=== PATIENT | male | born 1960 | race Caucasian/White ===

== ENCOUNTER 2017-10-22 05:28 | Inpatient (IN) | payer BC ==
[~2017-10-22] VITALS: Ht 188 cm; Wt 102.1 kg
[~2017-10-22 05:28] MED LIST: ATEN50TA PO; INSU100V9 SUBCUT; LIP10 PO; LOSA50TA3 PO
[2017-10-22] MEDS ORDERED: CELECOXIB 200 MG CAPSULE ONE (05:58)
[2017-10-22] MEDS ORDERED: CEFAZOLIN 2 GM IVPB PREMIX 50 ML IV ONE (05:58)
[2017-10-22] MEDS ORDERED: ACETAMINOPHEN 500 MG TABLET ONE (05:59)
[2017-10-22] MEDS ORDERED: oxyCODONE HCL 10 MG TAB.ER.12H PO ONE (05:59)
[2017-10-22] MEDS ORDERED: GABAPENTIN 300 MG CAPSULE ONE (05:59)
[2017-10-22] MEDS ORDERED: TRANEXAMIC ACID 650 MG TABLET ONE (06:00)
[2017-10-22] MEDS ORDERED: NF (06:20)
[2017-10-22] MEDS ORDERED: POLYMYXIN 500,000/BACIT.10,000 UNITS in NS IRR 1 L IR ONE (07:10)
[2017-10-22] MEDS ORDERED: LR 1,000 ML IV ONE (08:16)
[2017-10-22] MEDS ORDERED: ONDANSETRON HCL 4 MG/2 ML VIAL IVP PRN ×3 (08:30→09:45)
[2017-10-22] MEDS ORDERED: ePHEDrine sulfate 50 MG/ML VIAL IVP PRN (08:30)
[2017-10-22] MEDS ORDERED: KETOROLAC TROMETHAMINE 30 MG VIAL IM PRN (08:30)
[2017-10-22] MEDS ORDERED: fentaNYL CITRATE/PF 100 MCG/2 ML AMP IVP PRN (08:30)
[2017-10-22] MEDS ORDERED: DIPHENHYDRAMINE INJ 50 MG/ML VIAL IVP PRN (08:30)
[2017-10-22] MEDS ORDERED: NALBUPHINE HCL 10 MG/ML AMP IVP PRN (08:30)
[2017-10-22] MEDS ORDERED: NALOXONE HCL 0.4 MG/ML AMP (NARCAN) IVP PRN (08:30)
[2017-10-22] MEDS: LR 1,000 ML IV SCH ×2 (09:32→20:15)
[2017-10-22] MEDS ORDERED: ROPIVACAINE 0.2% 550 ML INJ SCH (09:32)
[2017-10-22] MEDS ORDERED: ACETAMINOPHEN 325 MG TABLET PO PRN (09:45)
[2017-10-22] MEDS ORDERED: KETOROLAC TROMETHAMINE 30 MG VIAL IVP PRN (09:45)
[2017-10-22] MEDS ORDERED: MORPHINE SULFATE 10 MG/ML VIAL IVP PRN (09:45)
[2017-10-22] MEDS ORDERED: PROMETHAZINE HCL 25 MG/ML AMP IVP PRN (09:45)
[2017-10-22] MEDS ORDERED: oxyCODONE HCL 5 MG TABLET PO PRN (09:45)
[2017-10-22] MEDS ORDERED: DIPHENHYDRAMINE HCL 50 MG CAPSULE PO PRN (09:45)
[2017-10-22] MEDS ORDERED: SENNOSIDES 8.6 MG TABLET PO PRN (09:45)
[2017-10-22] MEDS ORDERED: VANCOMYCIN HCL 1000 MG/VIAL IV ONE (09:50)
[2017-10-22] MEDS ORDERED: LR 1,000 ML IV.SOLN IV ONE (09:50)
[2017-10-22] MEDS ORDERED: EPINEPHrine 1 MG/ML AMP IV ONE (09:50)
[2017-10-22] MEDS ORDERED: METOCLOPRAMIDE HCL 10 MG/2 ML VIAL IVP ONE (09:50)
[2017-10-22] MEDS ORDERED: MORPHINE SULFATE 10MG/10ML PF AMP EP ONE (09:50)
[2017-10-22] MEDS ORDERED: SEVOFLURANE 15 MIN GAS INH ONE (09:50)
[2017-10-22] MEDS ORDERED: fentaNYL CITRATE/PF 100 MCG/2 ML AMP IVP ONE (09:50)
[2017-10-22] MEDS ORDERED: MIDAZOLAM HCL 5 MG/ML VIAL (VERSED) IV ONE (09:50)
[2017-10-22] MEDS ORDERED: KETOROLAC TROMETHAMINE 30 MG VIAL IVP ONE (09:50)
[2017-10-22] MEDS ORDERED: DEXAMETHASONE SOD PHOSPHATE 4 MG/ML VIAL IVP ONE (09:50)
[2017-10-22] MEDS ORDERED: PROPOFOL 200MG/ 20ML VIAL (DIPRIVAN) IV ONE (09:50)
[2017-10-22] MEDS ORDERED: ROPIVACAINE 40 MG/20 ML AMP EP ONE (09:50)
[2017-10-22] MEDS ORDERED: TRANEXAMIC ACID 1,000 MG/10 ML VIAL IV ONE (09:50)
[2017-10-22] MEDS ORDERED: NS 50 ML BAG IV ONE (09:50)
[2017-10-22 10:30] VITALS: BP_SYST 134
[2017-10-22] MEDS: CEFAZOLIN 1 GM IVPB PREMIX 50 ML IV SCH ×2 (14:37→22:11)
[2017-10-22] MEDS: ACETAMINOPHEN 500 MG TABLET PO SCH ×2 (14:47→20:14)
[2017-10-22 14:49] VITALS: BP_SYST 134
[2017-10-22 15:35] VITALS: BP_SYST 126
[2017-10-22 19:30] VITALS: BP_SYST 118
[2017-10-22] MEDS: CELECOXIB 200 MG CAPSULE PO SCH (20:11)
[2017-10-22] MEDS: GABAPENTIN 300 MG CAPSULE PO SCH (20:11)
[2017-10-22] MEDS: ATENOLOL 50 MG TABLET (TENORMIN) PO SCH (20:12)
[2017-10-22] MEDS: INSULIN REGULAR, HUMAN 100 UNITS/ML, 10 ML VIAL (novoLIN R) SUBCUT PRN (23:14)
[2017-10-22 23:50] VITALS: BP_SYST 114
[2017-10-23] MEDS: CEFAZOLIN 1 GM IVPB PREMIX 50 ML IV SCH (05:52)
[2017-10-23] MEDS: LR 1,000 ML IV SCH ×2 (05:53→16:57)
[2017-10-23] MEDS: INSULIN REGULAR, HUMAN 100 UNITS/ML, 10 ML VIAL (novoLIN R) SUBCUT PRN ×2 (06:00→11:33)
[2017-10-23 06:02] LABS: BASOPHILS % (AUTO) 0.2 % (0.0-2.0); EOSINOPHILS # (AUTO) 0.1 K/uL (0.0-0.4); EOSINOPHILS % (AUTO) 0.5 % (0.0-4.0); HEMATOCRIT 36.3 % (36-54); HEMOGLOBIN 12.2 g/dL (14.0-18.0); LYMPHOCYTES # (AUTO) 1.6 K/uL (1.0-5.5); LYMPHOCYTES % (AUTO) 12.5 % (20.5-51.5); MEAN CORPUSCULAR HEMOGLOBIN 28 pg (27-31); MEAN CORPUSCULAR HGB CONC 34 % (32-36); MEAN CORPUSCULAR VOLUME 83 fL (79.0-98.0); MONOCYTES # (AUTO) 0.7 K/uL (0.0-1.0); MONOCYTES % (AUTO) 5.3 % (1.7-9.3); NEUTROPHILS # (AUTO) 10.2 K/uL (1.8-7.7); NEUTROPHILS % (AUTO) 81.5 % (40.0-70.0); PLATELET COUNT (AUTO) 194 K/uL (130-430); RED BLOOD CELL COUNT(AUTO) 4.35 MIL/uL (4.2-6.2); RED CELL DISTRIBUTION WIDTH 13.2 % (9.0-15.0); WHITE BLOOD COUNT (AUTO) 12.6 K/uL (4.8-10.8)
[2017-10-23 06:11] LABS: CALCIUM 8.8 mg/dL (8.4-11.0); POTASSIUM 4.9 mmol/L (3.5-5.1)
[2017-10-23 07:55] VITALS: BP_SYST 145
[2017-10-23] MEDS: ACETAMINOPHEN 500 MG TABLET PO SCH ×3 (08:41→20:09)
[2017-10-23] MEDS: CELECOXIB 200 MG CAPSULE PO SCH ×2 (08:42→20:09)
[2017-10-23] MEDS: ATORVASTATIN 10 MG TABLET PO SCH (08:43)
[2017-10-23] MEDS: LOSARTAN POTASSIUM 50 MG TABLET (COZAAR) PO SCH (08:43)
[2017-10-23] MEDS: ATENOLOL 50 MG TABLET (TENORMIN) PO SCH ×2 (08:43→20:08)
[2017-10-23] MEDS: RIVAROXABAN 10 MG TABLET PO SCH (10:24)
[2017-10-23] MEDS: oxyCODONE HCL 5 MG TABLET PO PRN ×2 (10:28→21:30)
[2017-10-23 12:42] VITALS: BP_SYST 135
[2017-10-23 16:47] VITALS: BP_SYST 121
[2017-10-23 19:40] VITALS: BP_SYST 140
[2017-10-23] MEDS: GABAPENTIN 300 MG CAPSULE PO SCH (20:08)
[2017-10-23 23:59] VITALS: BP_SYST 102
[2017-10-24] MEDS: LR 1,000 ML IV SCH (01:32)
[2017-10-24 05:20] LABS: BASOPHILS % (AUTO) 0.2 % (0.0-2.0); EOSINOPHILS # (AUTO) 0.3 K/uL (0.0-0.4); EOSINOPHILS % (AUTO) 2.7 % (0.0-4.0); HEMATOCRIT 33.2 % (36-54); HEMOGLOBIN 11.3 g/dL (14.0-18.0); LYMPHOCYTES # (AUTO) 1.4 K/uL (1.0-5.5); LYMPHOCYTES % (AUTO) 14.9 % (20.5-51.5); MEAN CORPUSCULAR HEMOGLOBIN 28 pg (27-31); MEAN CORPUSCULAR HGB CONC 34 % (32-36); MEAN CORPUSCULAR VOLUME 83 fL (79.0-98.0); MONOCYTES # (AUTO) 0.6 K/uL (0.0-1.0); MONOCYTES % (AUTO) 6.7 % (1.7-9.3); NEUTROPHILS # (AUTO) 7.4 K/uL (1.8-7.7); NEUTROPHILS % (AUTO) 75.5 % (40.0-70.0); PLATELET COUNT (AUTO) 166 K/uL (130-430); RED BLOOD CELL COUNT(AUTO) 4.01 MIL/uL (4.2-6.2); RED CELL DISTRIBUTION WIDTH 13.4 % (9.0-15.0); WHITE BLOOD COUNT (AUTO) 9.7 K/uL (4.8-10.8)
[2017-10-24 05:24] LABS: CALCIUM 8.7 mg/dL (8.4-11.0); CHLORIDE 105 mmol/L (98-107); CREATININE 1.07 mg/dL (0.55-1.30); GLUCOSE 138 mg/dL (70-99); SODIUM SERUM 136 mmol/L (136-145); UREA NITROGEN, BLOOD 19 mg/dL (8-21)
[2017-10-24] MEDS: oxyCODONE HCL 5 MG TABLET PO PRN (05:33)
[2017-10-24 06:30] LABS: GFR AFRICAN AMERICAN 92 mL/min (>90)
[2017-10-24 06:31] LABS: ANION GAP < 3 (5-15)
[2017-10-24 07:45] VITALS: BP_SYST 131
[2017-10-24] MEDS: CELECOXIB 200 MG CAPSULE PO SCH (08:42)
[2017-10-24] MEDS: LOSARTAN POTASSIUM 50 MG TABLET (COZAAR) PO SCH (08:42)
[2017-10-24] MEDS: ATORVASTATIN 10 MG TABLET PO SCH (08:42)
[2017-10-24] MEDS: ATENOLOL 50 MG TABLET (TENORMIN) PO SCH (08:43)
[2017-10-24] MEDS: ACETAMINOPHEN 500 MG TABLET PO SCH (08:54)
[2017-10-24] MEDS: RIVAROXABAN 10 MG TABLET PO SCH (09:05)
[2017-10-24] MEDS ORDERED: PERC10 GT (11:44)
[2017-10-24] MEDS ORDERED: RIVA10TA PO (11:48)
[2017-10-24 11:49] VITALS: BP_SYST 118
[2017-10-24 11:57] VITALS: BP_SYST 118
== END 2017-10-24 13:00 | disposition home health service (06) | DRG 470 ==
LOC: SMU 05:28 → STU 13:03
PROVIDERS: ADMIT Orthopaedic Surgery; ATTEND Orthopaedic Surgery
PROC: 0SRC0J9 Replacement of Right Knee Joint with Synthetic Substitute, Cemented, Open Approach (ICD-10-PCS; principal; 2017-10-22 07:30)
DX: M17.11 Unilateral primary osteoarthritis, right knee (principal); E11.9 Type 2 diabetes mellitus without complications; I10 Essential (primary) hypertension
CPT/HCPCS: 36415; 80048; 82962; 85025; 87081; 88305; 88311; 94010; 94760; 97039; 97110-GP; 97116-GP; 97530-GP; C1713; C1776; J0171; J0690; J1100; J1815; J1885; J2250; J2274; J2704; J2765; J2795; J3010; J3370; J3490; J7030; J7120